=== PATIENT | male | born 2000 | race Hispanic/Latino ===

== ENCOUNTER 2024-11-18 03:12 | Emergency (ER) | payer OTHER ==
[~2024-11-18] VITALS: Ht 172.7 cm; Wt 88.5 kg
[~2024-11-18 03:12] MED LIST: PREDNISONE20 MG PO; VENTOLIN HFA18 GM INH; VYVANSE40 M1
[2024-11-18] MEDS ORDERED: ONDANSETRON HCL INJ 2MG/ML 2ML 2 MG/ML VIAL ONE (03:23)
[2024-11-18 03:30] VITALS: TEMP 97.8
[2024-11-18] MEDS: MULTIVITAMINS- 12 INJECTION 10 ML, FOLIC ACID MDV 1 MG, THIAMINE HCL INJ 100 MG in SODI... IV ONE (03:36)
[2024-11-18] MEDS: ONDANSETRON HCL INJ 2MG/ML 2ML 2 MG/ML VIAL IV STA (03:36)
[2024-11-18 03:47] LABS: BASOPHILS % 0.3 % (0.0-1.0); EOSINOPHILS % 0.4 % (0.0-6.0); LYMPHOCYTES % 8.7 % (18.0-39.1); MONOCYTES % 4.5 % (4.4-11.3); NEUTROPHILS % 85.7 % (38.7-80.0); RED CELL DISTRIBUTION WIDTH 12.9 % (11.7-14.4)
[2024-11-18 04:02] LABS: EST GLOMERULAR FILTRATION RATE 113.0 ML/MIN (>=60)
[2024-11-18 05:06] VITALS: PULSE 94; RESP 25
[2024-11-18] MEDS ORDERED: PANTOPRAZOLE SO40 MG PO (05:13)
[2024-11-18] MEDS ORDERED: ONDANSETRON ODT4 MG SL (05:13)
[2024-11-18 06:20] VITALS: BP 113/93; PULSE 87; RESP 17; TEMP 97.8; O2SAT 100
== END 2024-11-18 06:29 | disposition home or self-care (01) ==
LOC: ER 03:22
DX: R11.10 Vomiting, unspecified (principal); F10.129 Alcohol abuse with intoxication, unspecified; K21.9 Gastro-esophageal reflux disease without esophagitis; F90.9 Attention-deficit hyperactivity disorder, unspecified type; R94.31 Abnormal electrocardiogram [ECG] [EKG]
CPT/HCPCS: 36415; 70450; 71045; 72125; 80053; 80320; 82550; 82948; 84484; 85025; 99284; J2405; J2470; J3411; J7030; 93005